=== PATIENT | female | born 1970 | race Caucasian/White ===

== ENCOUNTER → 2016-06-06 | Outpatient (CLI) | payer BC ==
[~2016-06-06] MED LIST: EZET10TA63 PO; FRRG PO; PANT40TA PO; SIMV10TA2 PO; SYN200 PO; TRAZADONE PO
--- NOTE | 2016-06-06 16:06 | MAMMOGRAPHY REPORT ---
BILATERAL DIGITAL SCREENING MAMMOGRAM TOMOSYNTHESIS WITH CAD: 06/06/2016 CLINICAL HISTORY: Routine screening. Patient has no complaints. TECHNIQUE: Breast tomosynthesis in addition to standard 2D mammography was performed. Current study was also evaluated with a Computer Aided Detection (CAD) system. COMPARISON: Comparison is made to exams dated: 05/30/2015 mammogram, 05/26/2014 mammogram, 04/14/2013 ma mmogram, 03/26/2012 mammogram, and 03/22/2011 mammogram - [facility]. BREAST COMPOSITION: The tissue of both breasts is extremely dense, which lowers the sensitivity of mammography. FINDINGS: No suspicious masses, calcifications, or areas of architectural distortion are noted in e ither breast. There has been no significant interval change compared to prior exams. Partially circ umscribed mass in the right upper outer quadrant is stable dating back to at least the 2009 exam. O ther partially circumscribed and partially obscured mass seen more laterally is not significantly ch anged, and was shown to represent a benign cyst on the prior 2015 ultrasound exam. Bilateral benign -appearing calcifications are stable. IMPRESSION: ACR BI-RADS CATEGORY 2: BENIGN There is no mammographic evidence of malignancy. A 1 year screening mammogram is recommended. The p atient will receive written notification of the results. Approximately 10% of breast cancers are not detected with mammography. A negative mammographic repor t should not delay biopsy if a clinically suggestive mass is present. Anaya Lea M.D. ah/:06/06/2016 15:44:39 Frame Opener: Dominique WARE(R)(M), [facility] letter sent: Normal 1/2 BI-RADS Code: ACR BI-RADS Category 2: Benign
== END | disposition home or self-care (01) ==
LOC: C.MAMM 08:56
PROVIDERS: ATTEND Obstetrics & Gynecology
DX: Z12.31 Encounter for screening mammogram for malignant neoplasm of breast (principal)

== ENCOUNTER → 2016-07-09 | Outpatient (CLI) | payer BC ==
[2016-07-09 10:43] LABS: BASO ABS # 0.09 K/uL (0-0.2); COMPLETE YES; EOS % 1.3 %; HEMATOCRIT 44.2 % (37-47); IG% 0.4 %; LYMPH % 16.5 %; LYMPH ABS # 1.56 K/uL (1.2-3.4); MEAN CELL VOLUME 93.4 fL (80-100); MEAN CORPUSCULAR HEMOGLOBIN 31.9 pg (25-34); MEAN CORPUSCULAR HGB CONC 34.2 g/dl (32-36); MONO % 6.4 %; NEUT % 74.4 %; PLATELET COUNT 494 K/uL (130-400); RED BLOOD COUNT 4.73 M/uL (4.2-5.4); WHITE BLOOD COUNT 9.47 K/uL (4.8-10.8)
[2016-07-09 11:02] LABS: FERRITIN 172.3 ng/ml (8.0-388.0); MAGNESIUM 2.5 mg/dl (1.8-2.4); THYROID STIMULATING HORMONE 2.79 uIu/ml (0.300-4.500)
--- NOTE | 2016-07-13 11:41 | CODING QUERY MEDICAL NECESSITY ---
CQSUPPORTING DIAGNOSIS NEEDED A supporting diagnosis is required for the test/procedure performed on this patient in order for us to be reimbursed by the patient's insurance. Please provide a supporting diagnosis for the following test/procedure listed below next to the test name along with your signature. *If there is no additional diagnosis for this patient that would support the following test/procedure please document that below next to the test/procedure. Test(s)/Procedure(s) that require a supporting diagnosis: DOS 07/09/16 VITAMIN B12 VITAMIN D SERUM IRON STUDIES Provider Signature: Date: Thank you Anabell Gordon Health Information Management Once completed, please kindly fax back to [phone] For questions please call [phone]
== END | disposition home or self-care (01) ==
LOC: C.LABBC 08:28
DX: R53.83 Other fatigue (principal); E55.9 Vitamin D deficiency, unspecified; E53.8 Deficiency of other specified B group vitamins; E56.8 Deficiency of other vitamins

== ENCOUNTER → 2017-06-14 | Outpatient (CLI) | payer BC ==
--- NOTE | 2017-06-17 08:08 | MAMMOGRAPHY REPORT ---
BILATERAL DIGITAL SCREENING MAMMOGRAM TOMOSYNTHESIS WITH CAD: 06/14/2017 CLINICAL HISTORY: Routine screening. Patient has no complaints. TECHNIQUE: Breast tomosynthesis in addition to standard 2D mammography was performed. Current study was also evaluated with a Computer Aided Detection (CAD) system. COMPARISON: Comparison is made to exams dated: 06/06/2016 mammogram, 05/30/2015 mammogram, 05/11/2015 ma mmogram, 05/11/2015 ultrasound, 05/26/2014 mammogram, and 04/14/2013 mammogram - [facility]. BREAST COMPOSITION: The tissue of both breasts is extremely dense, which lowers the sensitivity of m ammography. FINDINGS: No suspicious masses, calcifications, or areas of architectural distortion are noted in ei ther breast. There has been no significant interval change compared to prior exams. Dominant circums cribed benign-appearing 16 mm mass in the right upper outer quadrant is stable dating back to at leas t the 2009 exam and is therefore considered benign. Scattered bilateral benign-appearing calcificati ons are again noted. IMPRESSION: ACR BI-RADS CATEGORY 2: BENIGN There is no mammographic evidence of malignancy. A 1 year screening mammogram is recommended. The pa tient will receive written notification of the results. Approximately 10% of breast cancers are not detected with mammography. A negative mammographic report should not delay biopsy if a clinically suggestive mass is present. Anaya Lea M.D. /:06/14/2017 15:28:31 Director Global Medical Affairs: Dominique HINES)(Michi), [facility] letter sent: Normal 1/2 BI-RADS Code: ACR BI-RADS Category 2: Benign
== END | disposition home or self-care (01) ==
LOC: C.MAMM 08:29
PROVIDERS: ATTEND Obstetrics & Gynecology
DX: Z12.31 Encounter for screening mammogram for malignant neoplasm of breast (principal)

== ENCOUNTER → 2017-09-25 | Outpatient (CLI) | payer BC ==
[2017-09-25 10:49] LABS: BLOOD UREA NITROGEN 15 mg/dl (7-18); CALCIUM 9.6 mg/dl (8.5-10.1); CARBON DIOXIDE 28 mmol/L (21-32); CHOLESTEROL 264 mg/dl (0-200); CREATININE 0.82 mg/dl (0.60-1.20); GLUCOSE 76 mg/dl (70-99); LDL CHOLESTEROL CALCULATED 166 mg/dl; POTASSIUM 3.3 mmol/L (3.5-5.1); SODIUM 136 mmol/L (136-145); TRANSFERRIN 313 mg/dl (200-360)
== END | disposition home or self-care (01) ==
LOC: C.LABBC 07:31
DX: R60.0 Localized edema (principal); E03.9 Hypothyroidism, unspecified; D50.9 Iron deficiency anemia, unspecified; E55.9 Vitamin D deficiency, unspecified; R10.9 Unspecified abdominal pain; E78.5 Hyperlipidemia, unspecified